=== PATIENT | female | born 1955 | race Caucasian/White ===

== ENCOUNTER 2018-10-07 06:41 | Outpatient (CLI) | payer MEDICARE | END 2018-10-07 23:59 | disposition home or self-care (01) | LOC: CVU 06:41 | PROVIDERS: ATTEND Family Medicine | DX: I83.813 Varicose veins of bilateral lower extremities with pain (principal) | CPT/HCPCS: 93970 ==

== ENCOUNTER 2019-12-29 17:34 | Emergency (ER) | payer MEDICARE ==
[~2019-12-29] VITALS: Ht 165.1 cm; Wt 88.2 kg
[2019-12-29 18:00] VITALS: BP 171/79
--- NOTE | 2019-12-29 20:08 | NUR ---
CONSTRUCTION SITE CROSSING GUARD: CALLED FOR PT. PT NOT IN LOBBY.
--- NOTE | 2019-12-29 20:32 | NUR ---
ACCOUNTING SOFTWARE SPECIALIST: NOT IN LOBBY
--- NOTE | 2019-12-29 20:48 | NUR ---
LICENSE AND PERMIT SPECIALIST: NOT IN LOBBY X3
== END 2019-12-29 20:50 | disposition left against medical advice (07) ==
LOC: ED 19:30
DX: R10.84 Generalized abdominal pain (principal); R10.9 Unspecified abdominal pain
CPT/HCPCS: 99281